=== PATIENT | female | born 1950 | race Caucasian/White ===

== ENCOUNTER 2018-01-13 07:52 | Day surgery (SDC) | payer MEDICARE, MEDICAID ==
[~2018-01-13 07:52] MED LIST: Acetaminophen TAB* 325 MG PO PRN; Buffered Lidocaine 0.9% SYRIN* 5 ML/SYR SYRINGE INTRADERM ONE
[2018-01-13] MEDS ORDERED: Midazolam* 1 MG/ML 2 ML VIAL (2 MG) ONE (09:06)
[2018-01-13] MEDS ORDERED: fentaNYL* 50 MCG/ML 2 ML VIAL (100 MCG VIAL) ONE (09:06)
[2018-01-13 10:01] VITALS: BP 134/74
[2018-01-13] MEDS ORDERED: Tropicamide 1% OPTH.SOL* BTL ONE (13:20)
[2018-01-13] MEDS ORDERED: Cyclopentolate 1% OPTH.SOL* 2 ML BTL ONE (13:20)
[2018-01-13] MEDS ORDERED: Tetracaine 0.5% OPTH.SOL 4 ML* 1 DROP BTL ONE (13:20)
[2018-01-13] MEDS ORDERED: Neomycin/Polymy/Dex OPHTH.OIN* 3.5 GM ONE (13:20)
[2018-01-13] MEDS ORDERED: Ketorolac 0.5% OPHTH (NF) 0.5 % 5 ML BTL ONE (13:20)
[2018-01-13] MEDS ORDERED: Lidocaine 1%* 5 ML VIAL ONE (13:20)
[2018-01-13] MEDS ORDERED: Phenylephrine 2.5% OPTH.SOL* 2 ML BTL ONE (13:20)
--- NOTE | 2018-01-13 21:36 | OP ---
DATE OF OPERATION: 01/13/18 - [facility] DATE OF : 52 SURGEON: Dr. Yao Trevizo. TEST DATA DEVELOPER: None. ANESTHESIA: Topical with intravenous sedation. PRE-OP DIAGNOSIS: Glaucoma and cataract, right eye. POST-OP DIAGNOSIS: Glaucoma and cataract, right eye. OPERATIVE PROCEDURE: Phacoemulsification and cataract extraction, intraocular lens implant, and CyPass placement, right eye. COMPLICATIONS: None. BLOOD LOSS: None. DESCRIPTION OF PROCEDURE: The patient was brought to the operating room and given intravenous sedation. A drop of tetracaine was placed in her right eye. The patient was prepped and draped in the usual sterile fashion for ophthalmic surgery and attention was directed to the right eye where a speculum was placed. A paracentesis was created at the 11 o'clock position and 0.1 cc of 1% preservative- free Lidocaine was injected into the anterior chamber followed by DisCoVisc. The eye was digitally stabilized while a 2.75 mm keratome was used to create a triplanar clear corneal incision at the 9 o'clock position. A continuous curvilinear capsulorrhexis was created with a cystotome and Utrata forceps. BSS on a cannula was used to hydrodissect the lens from the capsule. Phacoemulsification was performed in a rygfwk-ryq-ekmvqnw technique to create four fragments, which were removed. Residual cortical material was removed with irrigation and aspiration. DisCoVisc was used to inflate the capsular bag and an AU00T0 20.5 diopter lens was inserted into the capsular bag. Supplemental DisCoVisc was used to deepen the anterior chamber and coat the surface of the cornea. The patient's head was rotated away from the surgeon. The microscope was rotated towards the surgeon. A gonioprism was placed on the surface of the eye. A CyPass on its spray gun repairer was introduced into the anterior chamber. Under direct visualization, the CyPass was inserted into the superciliary space in the nasal aspect of the angle. The spray gun repairer and the gonioprism were removed. The microscope and head were returned to a neutral position. Irrigation and aspiration were performed to remove viscoelastic from the eye. BSS on a cannula was used to hydrate the corneal stroma and seal the wound. At the end of the case, the pupil was round. The lens was centered and stable. The CyPass was in good position. The eye pressure appeared normal and the wound was watertight. The speculum was removed. Topical Maxitrol ointment was placed on the surface of the eye. The eye was closed, patched, and shielded and the patient was sent to the recovery room in stable condition with postoperative instructions and a followup appointment given. [id number]/[facility] #: [id number] MTDD
== END 2018-01-13 10:10 | disposition home or self-care (01) ==
LOC: OREAST 07:52
PROVIDERS: ATTEND Ophthalmology
DX: H25.11 Age-related nuclear cataract, right eye (principal); H40.89 Other specified glaucoma; G47.33 Obstructive sleep apnea (adult) (pediatric); I10 Essential (primary) hypertension; J44.9 Chronic obstructive pulmonary disease, unspecified; E03.9 Hypothyroidism, unspecified; M06.9 Rheumatoid arthritis, unspecified; F31.89 Other bipolar disorder; G25.81 Restless legs syndrome
CPT/HCPCS: A9270-GY; C1783; J2250; J3010; V2632

== ENCOUNTER 2018-01-20 08:39 | Day surgery (SDC) | payer MEDICARE, MEDICAID ==
[~2018-01-20 08:39] MED LIST changes: -Acetaminophen TAB* 325 MG PO PRN
[2018-01-20] MEDS ORDERED: fentaNYL* 50 MCG/ML 2 ML VIAL (100 MCG VIAL) ONE (10:11)
[2018-01-20] MEDS ORDERED: Midazolam* 1 MG/ML 2 ML VIAL (2 MG) ONE (10:11)
[2018-01-20] MEDS ORDERED: Naloxone* 0.4 MG/ML 1 ML VIAL IV PRN (11:36)
[2018-01-20 11:37] VITALS: BP 142/72
[2018-01-20] MEDS ORDERED: Tropicamide 1% OPTH.SOL* BTL ONE (15:09)
[2018-01-20] MEDS ORDERED: Tetracaine 0.5% OPTH.SOL 4 ML* 1 DROP BTL ONE (15:09)
[2018-01-20] MEDS ORDERED: Cyclopentolate 1% OPTH.SOL* 2 ML BTL ONE (15:09)
[2018-01-20] MEDS ORDERED: Ketorolac 0.5% OPHTH (NF) 0.5 % 5 ML BTL ONE (15:09)
[2018-01-20] MEDS ORDERED: Lidocaine 1%* 5 ML VIAL ONE (15:09)
[2018-01-20] MEDS ORDERED: Phenylephrine 2.5% OPTH.SOL* 2 ML BTL ONE (15:09)
[2018-01-20] MEDS ORDERED: Neomycin/Polymy/Dex OPHTH.OIN* 3.5 GM ONE (15:09)
--- NOTE | 2018-01-20 18:48 | OP ---
OPERATIVE REPORT: DATE OF OPERATION: 01/20/18 - [facility] DATE OF : 52 SURGEON: Yao Trevizo MD SCHOOL YEAR NANNY: None. ANESTHESIA: Topical with intravenous sedation. PRE-OP DIAGNOSIS: Cataract and glaucoma, left eye. POST-OP DIAGNOSIS: Cataract and glaucoma, left eye. OPERATIVE PROCEDURE: Phacoemulsification, cataract extraction with posterior chamber intraocular lens implant left eye and CyPass placed on the left eye. COMPLICATIONS: None. ESTIMATED BLOOD LOSS: None. DESCRIPTION OF PROCEDURE: The patient was brought to the operating room and received a small amount of intravenous sedation. A drop of Tetracaine was placed in her left eye. The patient was prepped and draped in the usual sterile fashion for ophthalmic surgery and attention was directed to the left eye where a speculum was placed. A paracentesis was created at the 5 o'clock position and 0.1 cc of 1% preservative free lidocaine was injected into the anterior chamber followed by DisCoVisc. The eye was digitally stabilized while a 2.75 mm keratome was used to create a triplanar clear corneal incision at the 3 o'clock position. A continuous curvilinear capsulorrhexis was created with a cystotome and Utrata forceps. BSS on a cannula was used to hydrodissect the lens from the capsule. Phacoemulsification was performed in a divide-and- conquer technique to create 4 fragments, which were removed. Residual cortical material was removed with irrigation and aspiration. DisCoVisc was used to inflate the capsular bag. An AU00T0 20.5 diopter lens was inserted into the capsular bag. Supplemental DisCoVisc was added to the anterior chamber to deepen it and to coat the surface of the cornea. The patient's head was rotated away from the doctor and the microscope was rotated towards the doctor. The angle was visualized by placing a corneal prism on the surface of the eye. A CyPass on its law examiner was introduced into the anterior chamber. Under direct visualization, the CyPass was placed into the nasal aspect of the superciliary space. The CyPass inserted on the corneal prism removed. The patient's head and the microscope were rotated to a neutral position. Viscoelastic was removed with irrigation and aspiration. BSS in a cannula was used to hydrate the corneal stroma and seal the wound. At the end of the case, the pupils were round. The lens was centered and stable. The eye pressure appeared normal. The CyPass was in good position. The wound was watertight. The speculum was removed and topical Maxitrol ointment was placed on the surface of the eye. The eye was closed, patched, and shielded, and the patient was sent to recovery room in stable condition with postop instructions and follow-up appointment given. [id number]/[facility] #: [id number] ELOISA
== END 2018-01-20 11:43 | disposition home or self-care (01) ==
LOC: OREAST 08:39
PROVIDERS: ATTEND Ophthalmology
DX: H25.12 Age-related nuclear cataract, left eye (principal); H40.89 Other specified glaucoma; F41.8 Other specified anxiety disorders; Z87.891 Personal history of nicotine dependence; E03.9 Hypothyroidism, unspecified; M06.9 Rheumatoid arthritis, unspecified; R06.02 Shortness of breath; G47.33 Obstructive sleep apnea (adult) (pediatric); J44.9 Chronic obstructive pulmonary disease, unspecified; F31.9 Bipolar disorder, unspecified
CPT/HCPCS: A9270-GY; C1783; J2250; J3010; V2632

== ENCOUNTER 2020-04-28 23:56 | Inpatient (IN) ==
[2020-04-29] MEDS ORDERED: NS 0.9% 1000 ml BAG 1,000 ML IV.FLUID IV ONE (00:30)
[2020-04-29 01:12] LABS: Activated Partial Thrombo Time 33.8 seconds (26.0-38.0); Hematocrit 41 % (35-47); Hemoglobin 13.2 g/dL (12.0-16.0); INR 1.03 (0.82-1.09); Mean Corpuscular HGB Conc 32 g/dL (31-36); Mean Corpuscular Hemoglobin 29 pg (27-31); Mean Corpuscular Volume 89 fL (80-97); Mean Platelet Volume 8.2 fL (7.4-10.4); Platelet Count 270 10^3/uL (150-450); Red Blood Count 4.56 10^6 /uL (3.70-4.87); Red Cell Distribution Width 14 % (10-15); White Blood Count 20.3 10^3/uL (3.5-10.8)
[2020-04-29 01:22] LABS: Albumin 3.8 g/dL (3.2-5.2); C Reactive Protein 202.16 mg/L (<8.01); Calcium 9.4 mg/dL (8.6-10.3); EGFR African American 66.7 (>60); EGFR Non-African American 55.1 (>60); Globulin 3.8 g/dL (2-4); Potassium 3.6 mmol/L (3.5-5.0); Total Bilirubin 0.4 mg/dL (0.2-1.0); Total Protein 7.6 g/dL (6.4-8.9)
[2020-04-29 01:23] LABS: Troponin I 0.01 ng/mL (<0.03)
[2020-04-29] MEDS ORDERED: Iodixanol (CONTRAST) 320 MG/ML 100 ML SDV IV ONE (01:38)
[2020-04-29 01:40] LABS: ABS Basophils 0.1 10^3/ul (0-0.2); ABS Eosinophils 0.1 10^3/ul (0-0.6); ABS Lymphocytes 0.7 10^3/ul (1.0-4.8); ABS Monocytes 1.6 10^3/ul (0-0.8); ABS Neutrophils 17.7 10^3/ul (1.5-7.7); Eosinophil % 0.7 %; Lymphocyte % 3.5 %
[2020-04-29] MEDS: Nicotine GUM 4MG FRUIT FLAVOR PO PRN ×2 (02:46→16:23)
[2020-04-29 03:09] LABS: Urine Appearance Clear; Urine Bilirubin Negative (Negative); Urine Blood 1+ (Negative); Urine Color Straw; Urine Glucose Negative (Negative); Urine Ketones Trace (Negative); Urine Nitrite Negative (Negative); Urine Protein Negative (Negative); Urine Specific Gravity 1.032 (1.010-1.030); Urine Urobilinogen Negative (Negative)
[2020-04-29 03:12] LABS: Urine Bacteria Absent (Absent); Urine Red Blood Cell 1+(3-5/hpf) (Absent); Urine Squamous Epithelial Cell Present (Absent); Urine White Blood Cell Trace(0-5/hpf) (Absent)
[2020-04-29 03:22] LABS: Influenza A Molecular Negative (Negative); Influenza B Molecular Negative (Negative)
[2020-04-29] MEDS ORDERED: Piperacillin/Tazobac ADVAN 3.375 GM in NS 0.9% 100 ml BAG 100 ML IV ONE (03:24)
[2020-04-29] MEDS ORDERED: Lactated Ringers 1000 ml BAG 1,000 ML IV SCH (05:00)
[2020-04-29] MEDS: metroNIDAZOLE IV 500 MG/100ML 500 MG/100 ML BAG IVPB SCH ×3 (06:41→21:34)
[2020-04-29] MEDS: Enoxaparin 40 MG/0.4 ML SYR SUBCUT SCH (07:39)
[2020-04-29] MEDS: cefTRIAXone 2 GM ADDV.VIAL 2 GM in NS 0.9% 100 ml BAG 100 ML IV SCH (09:47)
[2020-04-29] MEDS: Cholecalciferol (VIT D3) 1,000 unit TAB PO SCH (21:34)
[2020-04-29] MEDS: Aspirin EC 81 mg TAB.EC (enteric coated) PO SCH (21:34)
[2020-04-29] MEDS: Latanoprost 0.005% 2.5 ml BTL BOTH EYES SCH (21:34)
[2020-04-30] MEDS ORDERED: NS 0.9% 1000 ml BAG 1,000 ML IV ONE (03:38)
[2020-04-30] MEDS: Levalbuterol 0.63MG/3ML NEB UNIT OF USE INH PRN (04:18)
[2020-04-30 05:19] LABS: Hematocrit 37 % (35-47); Hemoglobin 11.8 g/dL (12.0-16.0); Mean Corpuscular HGB Conc 32 g/dL (31-36); Mean Corpuscular Hemoglobin 29 pg (27-31); Mean Corpuscular Volume 90 fL (80-97); Mean Platelet Volume 8.2 fL (7.4-10.4); Platelet Count 245 10^3/uL (150-450); Red Blood Count 4.07 10^6 /uL (3.70-4.87); Red Cell Distribution Width 14 % (10-15); White Blood Count 23.9 10^3/uL (3.5-10.8)
[2020-04-30 05:22] LABS: ABS Basophils 0.1 10^3/ul (0-0.2); ABS Eosinophils 0.4 10^3/ul (0-0.6); ABS Lymphocytes 0.7 10^3/ul (1.0-4.8); ABS Monocytes 1.9 10^3/ul (0-0.8); ABS Neutrophils 20.8 10^3/ul (1.5-7.7); Eosinophil % 1.6 %; Lymphocyte % 2.9 %
[2020-04-30 05:46] LABS: BUN/Creatinine Ratio 9.2 (8-20); Calcium 8.5 mg/dL (8.6-10.3); EGFR African American 91.6 (>60); EGFR Non-African American 75.7 (>60)
[2020-04-30] MEDS: Enoxaparin 40 MG/0.4 ML SYR SUBCUT SCH (05:49)
[2020-04-30] MEDS: metroNIDAZOLE IV 500 MG/100ML 500 MG/100 ML BAG IVPB SCH ×3 (05:49→21:28)
[2020-04-30] MEDS: cefTRIAXone 2 GM ADDV.VIAL 2 GM in NS 0.9% 100 ml BAG 100 ML IV SCH (08:42)
[2020-04-30] MEDS: Nicotine GUM 4MG FRUIT FLAVOR PO PRN ×4 (08:57→20:23)
[2020-04-30] MEDS: SPIRIVA Respimat (tiotropium) 2.5 mcg/inh Inhaler INH SCH (17:40)
[2020-04-30] MEDS: Aspirin EC 81 mg TAB.EC (enteric coated) PO SCH (20:23)
[2020-04-30] MEDS: Cholecalciferol (VIT D3) 1,000 unit TAB PO SCH (20:23)
[2020-04-30] MEDS: Latanoprost 0.005% 2.5 ml BTL BOTH EYES SCH (20:37)
[2020-05-01] MEDS: Enoxaparin 40 MG/0.4 ML SYR SUBCUT SCH ×2 (05:38→05:44)
[2020-05-01] MEDS: metroNIDAZOLE IV 500 MG/100ML 500 MG/100 ML BAG IVPB SCH ×3 (05:39→22:32)
[2020-05-01 09:06] LABS: Hematocrit 37 % (35-47); Hemoglobin 11.6 g/dL (12.0-16.0); Mean Corpuscular HGB Conc 31 g/dL (31-36); Mean Corpuscular Hemoglobin 29 pg (27-31); Mean Corpuscular Volume 91 fL (80-97); Platelet Count 273 10^3/uL (150-450); Red Blood Count 4.08 10^6 /uL (3.70-4.87); Red Cell Distribution Width 14 % (10-15)
[2020-05-01] MEDS: SPIRIVA Respimat (tiotropium) 2.5 mcg/inh Inhaler INH SCH (09:12)
[2020-05-01 09:27] LABS: BUN/Creatinine Ratio 8.6 (8-20); Calcium 8.7 mg/dL (8.6-10.3); EGFR African American 85.1 (>60); EGFR Non-African American 70.3 (>60)
[2020-05-01] MEDS: cefTRIAXone 2 GM ADDV.VIAL 2 GM in NS 0.9% 100 ml BAG 100 ML IV SCH (09:53)
[2020-05-01 10:16] LABS: ABS Eosinophils 0.2 10^3/ul (0-0.6); ABS Lymphocytes 0.3 10^3/ul (1.0-4.8); ABS Monocytes 1.3 10^3/ul (0-0.8); ABS Neutrophils 16.1 10^3/ul (1.5-7.7); Eosinophil % 1.2 %; Lymphocyte % 1.9 %
[2020-05-01] MEDS: Azithromycin 500 mg/250 ml NS 500 MG/250 ML BAG IVPB SCH (10:59)
[2020-05-01] MEDS ORDERED: Iohexol 350 (CONTRAST) 500 ML MDV IV ONE (18:09)
[2020-05-01] MEDS: Latanoprost 0.005% 2.5 ml BTL BOTH EYES SCH (19:35)
[2020-05-01] MEDS: Aspirin EC 81 mg TAB.EC (enteric coated) PO SCH (19:35)
[2020-05-01] MEDS: Cholecalciferol (VIT D3) 1,000 unit TAB PO SCH (19:35)
[2020-05-01] MEDS: Levalbuterol 0.63MG/3ML NEB UNIT OF USE INH PRN (21:45)
[2020-05-02] MEDS ORDERED: Succinylcholine 200 mg VIAL 20 mg/ml 10 ml VIAL (200 mg) ONE (00:43)
[2020-05-02] MEDS ORDERED: Etomidate 40 mg/20 ml (2 MG/ML) 20 ml VIAL (40 mg) ONE (01:03)
[2020-05-02] MEDS ORDERED: Propofol 10 mg/ml 100 ML BTL 100 ML ONE (01:16)
[2020-05-02] MEDS: Midazolam 50 MG VIAL IV DRIP 50 ML IV SCH ×3 (01:58→17:06)
[2020-05-02] MEDS ORDERED: Propofol 10 mg/ml 100 ML BTL 100 ML IV SCH (02:00)
[2020-05-02] MEDS ORDERED: Midazolam IV for DRIP 100 MG in NS 0.9% IV SCH (02:00)
[2020-05-02] MEDS: fentaNYL INFUSION 50 MCG/ML 2,500 MCG/50 ML BAG IV SCH (02:03)
[2020-05-02] MEDS: Pantoprazole VIAL 40 MG VIAL IV SCH ×2 (05:05→10:19)
[2020-05-02] MEDS: Chlorhexidine MOUTHWASH 0.12% 15 ML UDC TOPICAL SCH ×6 (05:05→21:50)
[2020-05-02] MEDS: Enoxaparin 40 MG/0.4 ML SYR SUBCUT SCH (05:06)
[2020-05-02 05:35] LABS: Hematocrit 35 % (35-47); Hemoglobin 11.2 g/dL (12.0-16.0); Mean Corpuscular HGB Conc 32 g/dL (31-36); Mean Corpuscular Hemoglobin 29 pg (27-31); Mean Corpuscular Volume 91 fL (80-97); Mean Platelet Volume 8.8 fL (7.4-10.4); Platelet Count 301 10^3/uL (150-450); Red Blood Count 3.86 10^6 /uL (3.70-4.87); Red Cell Distribution Width 14 % (10-15); White Blood Count 14.5 10^3/uL (3.5-10.8)
[2020-05-02] MEDS: metroNIDAZOLE IV 500 MG/100ML 500 MG/100 ML BAG IVPB SCH ×3 (05:47→22:20)
[2020-05-02 06:42] LABS: ABS Eosinophils 0.1 10^3/ul (0-0.6); ABS Lymphocytes 0.5 10^3/ul (1.0-4.8); ABS Monocytes 1.4 10^3/ul (0-0.8); ABS Neutrophils 12.4 10^3/ul (1.5-7.7); Lymphocyte % 3.5 %
[2020-05-02 08:13] LABS: Albumin 2.9 g/dL (3.2-5.2); Albumin/Globulin Ratio 0.9 (1-3); BUN/Creatinine Ratio 10.6 (8-20); C Reactive Protein 308.96 mg/L (<8.01); Calcium 8.9 mg/dL (8.6-10.3); EGFR African American 80.5 (>60); EGFR Non-African American 66.5 (>60); Globulin 3.2 g/dL (2-4); Magnesium 1.7 mg/dL (1.9-2.7); Potassium 4.1 mmol/L (3.5-5.0); Total Bilirubin 0.4 mg/dL (0.2-1.0); Total Protein 6.1 g/dL (6.4-8.9)
[2020-05-02] MEDS: Azithromycin 500 mg/250 ml NS 500 MG/250 ML BAG IVPB SCH (08:21)
[2020-05-02 09:08] LABS: Troponin I 0.05 ng/mL (<0.03)
[2020-05-02] MEDS ORDERED: Magnesium Sulfate 2 gm BAG 2 GM/50 ML BAG IVPB ONE (09:12)
[2020-05-02] MEDS ORDERED: Perflutren Lipid Microsphere 3 ML VIAL ONE (09:37)
[2020-05-02] MEDS: cefTRIAXone 2 GM ADDV.VIAL 2 GM in NS 0.9% 100 ml BAG 100 ML IV SCH (09:51)
[2020-05-02 14:09] LABS: Urine Appearance Cloudy; Urine Bilirubin Negative (Negative); Urine Blood Negative (Negative); Urine Color Amber; Urine Glucose Negative (Negative); Urine Ketones Trace (Negative); Urine Nitrite Negative (Negative); Urine Protein 2+(100 mg/dL) (Negative); Urine Urobilinogen Negative (Negative)
[2020-05-02 14:17] LABS: Urine Bacteria Absent (Absent); Urine Red Blood Cell Absent (Absent); Urine Squamous Epithelial Cell Present (Absent); Urine White Blood Cell 1+(6-10/hpf) (Absent)
[2020-05-02] MEDS: Cholecalciferol (VIT D3) 1,000 unit TAB PO SCH (21:51)
[2020-05-02] MEDS: Lactated Ringers 1000 ml BAG 1,000 ML IV SCH (21:57)
[2020-05-02] MEDS: Latanoprost 0.005% 2.5 ml BTL BOTH EYES SCH (23:33)
[2020-05-02] MEDS: Aspirin EC 81 mg TAB.EC (enteric coated) PO SCH (23:42)
[2020-05-03] MEDS ORDERED: NS 0.9% IV ONE (00:45)
[2020-05-03] MEDS ORDERED: NS 0.9% 1000 ml BAG 1,000 ML IV SCH (00:45)
[2020-05-03 01:25] LABS: Hematocrit 32 % (35-47); Hemoglobin 10.1 g/dL (12.0-16.0); Mean Corpuscular HGB Conc 32 g/dL (31-36); Mean Corpuscular Hemoglobin 29 pg (27-31); Mean Corpuscular Volume 89 fL (80-97); Platelet Count 285 10^3/uL (150-450); Red Blood Count 3.53 10^6 /uL (3.70-4.87); Red Cell Distribution Width 14 % (10-15); White Blood Count 18.4 10^3/uL (3.5-10.8)
[2020-05-03 01:42] LABS: Albumin 2.5 g/dL (3.2-5.2); Albumin/Globulin Ratio 0.8 (1-3); BUN/Creatinine Ratio 14.1 (8-20); Calcium 8.4 mg/dL (8.6-10.3); EGFR African American 73.5 (>60); EGFR Non-African American 60.7 (>60); Potassium 3.7 mmol/L (3.5-5.0); Total Bilirubin 0.4 mg/dL (0.2-1.0); Total Protein 5.5 g/dL (6.4-8.9)
[2020-05-03 02:39] LABS: ABS Eosinophils 0.5 10^3/ul (0-0.6); ABS Lymphocytes 0.7 10^3/ul (1.0-4.8); ABS Monocytes 1.9 10^3/ul (0-0.8); ABS Neutrophils 15.3 10^3/ul (1.5-7.7); Eosinophil % 2.9 %; Lymphocyte % 3.7 %
[2020-05-03] MEDS: Chlorhexidine MOUTHWASH 0.12% 15 ML UDC TOPICAL SCH ×6 (03:00→21:05)
[2020-05-03] MEDS: fentaNYL INFUSION 50 MCG/ML 2,500 MCG/50 ML BAG IV SCH ×2 (03:15→21:33)
[2020-05-03 03:26] LABS: Urine Appearance Clear; Urine Bilirubin Negative (Negative); Urine Blood 2+ (Negative); Urine Color Amber; Urine Glucose Negative (Negative); Urine Ketones Negative (Negative); Urine Nitrite Negative (Negative); Urine Protein 2+(100 mg/dL) (Negative); Urine Specific Gravity 1.027 (1.010-1.030); Urine Urobilinogen Negative (Negative)
[2020-05-03 03:48] LABS: Urine Bacteria Absent (Absent); Urine Red Blood Cell 3+(>10/hpf) (Absent); Urine Squamous Epithelial Cell Present (Absent); Urine White Blood Cell 1+(6-10/hpf) (Absent)
[2020-05-03] MEDS: Midazolam 50 MG VIAL IV DRIP 50 ML IV SCH ×3 (05:36→23:46)
[2020-05-03 05:43] LABS: Hematocrit 33 % (35-47); Hemoglobin 10.4 g/dL (12.0-16.0); Mean Corpuscular HGB Conc 32 g/dL (31-36); Mean Corpuscular Hemoglobin 29 pg (27-31); Mean Corpuscular Volume 90 fL (80-97); Platelet Count 301 10^3/uL (150-450); Red Blood Count 3.62 10^6 /uL (3.70-4.87); Red Cell Distribution Width 14 % (10-15); White Blood Count 20.2 10^3/uL (3.5-10.8)
[2020-05-03 05:46] LABS: ABS Basophils 0.1 10^3/ul (0-0.2); ABS Eosinophils 0.7 10^3/ul (0-0.6); ABS Neutrophils 16.4 10^3/ul (1.5-7.7); Eosinophil % 3.7 %; Lymphocyte % 5.2 %
[2020-05-03 06:00] LABS: BUN/Creatinine Ratio 15.5 (8-20); Calcium 7.9 mg/dL (8.6-10.3); EGFR African American 81.6 (>60); EGFR Non-African American 67.4 (>60)
[2020-05-03] MEDS: Lactated Ringers 1000 ml BAG 1,000 ML IV SCH ×3 (06:08→21:41)
[2020-05-03] MEDS: Enoxaparin 40 MG/0.4 ML SYR SUBCUT SCH (06:24)
[2020-05-03] MEDS: metroNIDAZOLE IV 500 MG/100ML 500 MG/100 ML BAG IVPB SCH ×3 (06:24→21:05)
[2020-05-03] MEDS: Azithromycin 500 mg/250 ml NS 500 MG/250 ML BAG IVPB SCH (09:26)
[2020-05-03] MEDS: cefTRIAXone 2 GM ADDV.VIAL 2 GM in NS 0.9% 100 ml BAG 100 ML IV SCH (09:26)
[2020-05-03 09:44] LABS: Myoglobin 29.8 ng/mL (14.3-65.8)
[2020-05-03] MEDS: Pantoprazole VIAL 40 MG VIAL IV SCH (09:54)
[2020-05-03] MEDS: Phenylephrine IV 50 MG in NS 0.9% 250 ml 245 ML IV SCH (11:25)
[2020-05-03] MEDS: Levalbuterol 0.63MG/3ML NEB UNIT OF USE INH PRN (15:13)
[2020-05-03] MEDS: Levalbuterol 1.25MG/0.5ML NEB.SOL INH PRN (15:16)
[2020-05-03] MEDS: Latanoprost 0.005% 2.5 ml BTL BOTH EYES SCH (20:16)
[2020-05-03] MEDS: Cholecalciferol (VIT D3) 1,000 unit TAB PO SCH (20:24)
[2020-05-04] MEDS: Chlorhexidine MOUTHWASH 0.12% 15 ML UDC TOPICAL SCH ×6 (02:24→22:29)
[2020-05-04] MEDS: Lactated Ringers 1000 ml BAG 1,000 ML IV SCH ×3 (03:56→20:18)
[2020-05-04 04:01] LABS: Hematocrit 32 % (35-47); Hemoglobin 10.3 g/dL (12.0-16.0); Mean Corpuscular HGB Conc 32 g/dL (31-36); Mean Corpuscular Hemoglobin 29 pg (27-31); Mean Corpuscular Volume 90 fL (80-97); Mean Platelet Volume 8.2 fL (7.4-10.4); Platelet Count 350 10^3/uL (150-450); Red Cell Distribution Width 15 % (10-15); White Blood Count 19.7 10^3/uL (3.5-10.8)
[2020-05-04 04:04] LABS: ABS Basophils 0.1 10^3/ul (0-0.2); ABS Eosinophils 0.8 10^3/ul (0-0.6); ABS Lymphocytes 0.7 10^3/ul (1.0-4.8); ABS Monocytes 1.8 10^3/ul (0-0.8); ABS Neutrophils 16.4 10^3/ul (1.5-7.7); Eosinophil % 3.8 %; Lymphocyte % 3.5 %
[2020-05-04 04:15] LABS: BUN/Creatinine Ratio 15.7 (8-20); Calcium 8.1 mg/dL (8.6-10.3); EGFR African American 100.7 (>60); EGFR Non-African American 83.2 (>60); Magnesium 1.9 mg/dL (1.9-2.7); Potassium 3.8 mmol/L (3.5-5.0)
[2020-05-04] MEDS: Midazolam 50 MG VIAL IV DRIP 50 ML IV SCH ×3 (04:56→18:40)
[2020-05-04] MEDS: Enoxaparin 40 MG/0.4 ML SYR SUBCUT SCH (05:07)
[2020-05-04] MEDS: metroNIDAZOLE IV 500 MG/100ML 500 MG/100 ML BAG IVPB SCH ×3 (05:08→22:29)
[2020-05-04] MEDS: cefTRIAXone 2 GM ADDV.VIAL 2 GM in NS 0.9% 100 ml BAG 100 ML IV SCH (08:33)
[2020-05-04] MEDS: Pantoprazole VIAL 40 MG VIAL IV SCH (08:33)
[2020-05-04] MEDS: Azithromycin 500 mg/250 ml NS 500 MG/250 ML BAG IVPB SCH (08:34)
[2020-05-04] MEDS: Phenylephrine IV 50 MG in NS 0.9% 250 ml 245 ML IV SCH ×2 (09:11→21:33)
[2020-05-04] MEDS ORDERED: Vancomycin 1,250 MG in NS 0.9% 250 ml 250 ML IVPB SCH (11:00)
[2020-05-04] MEDS ORDERED: VANCOMYCIN 1500 MG X 1 DOSE, THEN PER PHARMACY PROTOCOL IVPB ONE (11:30)
[2020-05-04] MEDS: Cefepime 1 GM in Dextrose 1 GM/50 ML BAG IV SCH ×2 (13:08→23:10)
[2020-05-04] MEDS ORDERED: Vancomycin per Pharmacy 1 EA NOTE FOLLOW UP PRN (13:28)
[2020-05-04] MEDS: Levalbuterol 1.25MG/0.5ML NEB.SOL INH PRN (14:12)
[2020-05-04] MEDS: Vancomycin 1000 MG in NS 0.9% 250 ML IVPB SCH (20:18)
[2020-05-04] MEDS: Cholecalciferol (VIT D3) 1,000 unit TAB PO SCH (20:19)
[2020-05-04] MEDS: Latanoprost 0.005% 2.5 ml BTL BOTH EYES SCH (20:19)
[2020-05-04] MEDS: fentaNYL INFUSION 50 MCG/ML 2,500 MCG/50 ML BAG IV SCH (23:10)
[2020-05-05] MEDS: Midazolam 50 MG VIAL IV DRIP 50 ML IV SCH ×3 (01:35→19:03)
[2020-05-05] MEDS: Chlorhexidine MOUTHWASH 0.12% 15 ML UDC TOPICAL SCH ×6 (01:39→21:33)
[2020-05-05] MEDS: Enoxaparin 40 MG/0.4 ML SYR SUBCUT SCH (05:18)
[2020-05-05] MEDS: metroNIDAZOLE IV 500 MG/100ML 500 MG/100 ML BAG IVPB SCH ×3 (05:18→21:33)
[2020-05-05] MEDS: Vancomycin 1000 MG in NS 0.9% 250 ML IVPB SCH ×3 (05:18→21:33)
[2020-05-05] MEDS: Lactated Ringers 1000 ml BAG 1,000 ML IV SCH (05:20)
[2020-05-05 05:32] LABS: Hematocrit 33 % (35-47); Hemoglobin 10.6 g/dL (12.0-16.0); Mean Corpuscular HGB Conc 32 g/dL (31-36); Mean Corpuscular Hemoglobin 28 pg (27-31); Mean Corpuscular Volume 89 fL (80-97); Mean Platelet Volume 8.2 fL (7.4-10.4); Platelet Count 387 10^3/uL (150-450); Red Blood Count 3.73 10^6 /uL (3.70-4.87); Red Cell Distribution Width 15 % (10-15); White Blood Count 18.2 10^3/uL (3.5-10.8)
[2020-05-05 05:52] LABS: BUN/Creatinine Ratio 14.7 (8-20); Calcium 8.3 mg/dL (8.6-10.3); EGFR African American 104.1 (>60); Phosphorus 4.1 mg/dL (2.5-5.0); Potassium 3.8 mmol/L (3.5-5.0)
[2020-05-05 06:35] LABS: ABS Eosinophils 0.9 10^3/ul (0-0.6); ABS Lymphocytes 0.6 10^3/ul (1.0-4.8); ABS Monocytes 1.7 10^3/ul (0-0.8); Eosinophil % 5.1 %; Lymphocyte % 3.2 %
[2020-05-05] MEDS: Pantoprazole VIAL 40 MG VIAL IV SCH (07:56)
[2020-05-05] MEDS ORDERED: Furosemide 20 mg/2 ml IV VIAL IV SLOW PU ONE (08:50)
[2020-05-05] MEDS ORDERED: fentaNYL 100 mcg/2 ml 50 MCG/ML VIAL ONE (09:40)
[2020-05-05] MEDS: Albuterol/Ipratropium NEB.SOL (2.5/0.5 MG) 3 ML NEB.SOLN INH SCH ×3 (10:40→23:59)
[2020-05-05] MEDS: Cefepime 1 GM in Dextrose 1 GM/50 ML BAG IV SCH ×2 (11:04→23:29)
[2020-05-05] MEDS: Phenylephrine IV 50 MG in NS 0.9% 250 ml 245 ML IV SCH ×2 (12:26→23:09)
[2020-05-05] MEDS ORDERED: Vancomycin Trough Check NOTE FOLLOW UP ONE (13:30)
[2020-05-05 14:22] LABS: Body Fluid Source Pleural Fluid
[2020-05-05 15:44] LABS: Body Fluid Mono 21 %; Body Fluid Other Cells 2
[2020-05-05] MEDS: fentaNYL INFUSION 50 MCG/ML 2,500 MCG/50 ML BAG IV SCH (18:56)
[2020-05-05] MEDS: Latanoprost 0.005% 2.5 ml BTL BOTH EYES SCH (19:55)
[2020-05-05] MEDS: Cholecalciferol (VIT D3) 1,000 unit TAB PO SCH (19:55)
[2020-05-06] MEDS: Chlorhexidine MOUTHWASH 0.12% 15 ML UDC TOPICAL SCH ×6 (01:50→20:49)
[2020-05-06] MEDS: metroNIDAZOLE IV 500 MG/100ML 500 MG/100 ML BAG IVPB SCH ×3 (04:17→21:50)
[2020-05-06] MEDS: Vancomycin 1000 MG in NS 0.9% 250 ML IVPB SCH (04:19)
[2020-05-06 04:24] LABS: Hematocrit 34 % (35-47); Hemoglobin 10.6 g/dL (12.0-16.0); Mean Corpuscular HGB Conc 32 g/dL (31-36); Mean Corpuscular Hemoglobin 29 pg (27-31); Mean Corpuscular Volume 90 fL (80-97); Mean Platelet Volume 7.8 fL (7.4-10.4); Platelet Count 432 10^3/uL (150-450); Red Blood Count 3.73 10^6 /uL (3.70-4.87); Red Cell Distribution Width 15 % (10-15); White Blood Count 17.8 10^3/uL (3.5-10.8)
[2020-05-06] MEDS: Albuterol/Ipratropium NEB.SOL (2.5/0.5 MG) 3 ML NEB.SOLN INH SCH ×3 (04:33→17:14)
[2020-05-06 04:40] LABS: BUN/Creatinine Ratio 13.5 (8-20); Calcium 8.3 mg/dL (8.6-10.3); EGFR African American 40.2 (>60); EGFR Non-African American 33.3 (>60); Magnesium 2.1 mg/dL (1.9-2.7); Phosphorus 5.7 mg/dL (2.5-5.0); Potassium 4.2 mmol/L (3.5-5.0)
[2020-05-06] MEDS: Midazolam 50 MG VIAL IV DRIP 50 ML IV SCH ×3 (04:49→23:20)
[2020-05-06] MEDS: Enoxaparin 40 MG/0.4 ML SYR SUBCUT SCH (05:59)
[2020-05-06] MEDS: Phenylephrine IV 50 MG in NS 0.9% 250 ml 245 ML IV SCH ×2 (07:50→16:59)
[2020-05-06] MEDS: Pantoprazole VIAL 40 MG VIAL IV SCH (08:43)
[2020-05-06 11:47] LABS: Albumin, BF 1.4 g/dL; Lactate Dehydrogenase, BF 127 U/L
[2020-05-06] MEDS: Cefepime 1 GM in Dextrose 1 GM/50 ML BAG IV SCH ×2 (12:38→22:37)
[2020-05-06] MEDS: fentaNYL INFUSION 50 MCG/ML 2,500 MCG/50 ML BAG IV SCH (16:59)
[2020-05-06] MEDS: Cholecalciferol (VIT D3) 1,000 unit TAB PO SCH (19:17)
[2020-05-06] MEDS: Latanoprost 0.005% 2.5 ml BTL BOTH EYES SCH (19:18)
[2020-05-07] MEDS: Albuterol/Ipratropium NEB.SOL (2.5/0.5 MG) 3 ML NEB.SOLN INH SCH ×4 (00:08→19:10)
[2020-05-07] MEDS: Phenylephrine IV 50 MG in NS 0.9% 250 ml 245 ML IV SCH (02:17)
[2020-05-07] MEDS: Chlorhexidine MOUTHWASH 0.12% 15 ML UDC TOPICAL SCH ×6 (02:18→21:12)
[2020-05-07 04:28] LABS: Hematocrit 33 % (35-47); Hemoglobin 10.4 g/dL (12.0-16.0); Mean Corpuscular HGB Conc 31 g/dL (31-36); Mean Corpuscular Hemoglobin 28 pg (27-31); Mean Corpuscular Volume 91 fL (80-97); Mean Platelet Volume 7.9 fL (7.4-10.4); Platelet Count 419 10^3/uL (150-450); Red Blood Count 3.66 10^6 /uL (3.70-4.87); Red Cell Distribution Width 15 % (10-15); White Blood Count 19.2 10^3/uL (3.5-10.8)
[2020-05-07 04:42] LABS: BUN/Creatinine Ratio 11.7 (8-20); Calcium 8.3 mg/dL (8.6-10.3); EGFR African American 22.4 (>60); EGFR Non-African American 18.6 (>60); Phosphorus 5.7 mg/dL (2.5-5.0); Potassium 4.4 mmol/L (3.5-5.0)
[2020-05-07] MEDS: metroNIDAZOLE IV 500 MG/100ML 500 MG/100 ML BAG IVPB SCH ×3 (05:02→21:51)
[2020-05-07] MEDS: Enoxaparin 40 MG/0.4 ML SYR SUBCUT SCH (05:28)
[2020-05-07] MEDS ORDERED: Phenylephrine IV 50 MG in NS 0.9% 250 ml 245 ML IV SCH (08:08)
[2020-05-07] MEDS: Pantoprazole VIAL 40 MG VIAL IV SCH (08:33)
[2020-05-07] MEDS: Midazolam 50 MG VIAL IV DRIP 50 ML IV SCH ×2 (09:34→19:03)
[2020-05-07] MEDS ORDERED: Lactated Ringers 1000 ml BAG 1,000 ML IV ONE (09:41)
[2020-05-07 09:53] LABS: Urine Potassium Concentration 33.3 mmol/L
[2020-05-07] MEDS: Cefepime 1 GM in Dextrose 1 GM/50 ML BAG IV SCH (12:04)
[2020-05-07] MEDS: fentaNYL INFUSION 50 MCG/ML 2,500 MCG/50 ML BAG IV SCH (13:08)
[2020-05-07] MEDS: Cholecalciferol (VIT D3) 1,000 unit TAB PO SCH (21:12)
[2020-05-07] MEDS: Heparin 5000 UNITS/ML 1 mL VIAL SUBCUT SCH (21:12)
[2020-05-07] MEDS: Latanoprost 0.005% 2.5 ml BTL BOTH EYES SCH (21:13)
[2020-05-07] MEDS ORDERED: Alteplase (CATHFLO) 2 MG VIAL IV ONE ×2 (21:57→22:10)
[2020-05-08] MEDS: metroNIDAZOLE IV 500 MG/100ML 500 MG/100 ML BAG IVPB SCH ×4 (00:14→22:34)
[2020-05-08] MEDS: Cefepime 1 GM in Dextrose 1 GM/50 ML BAG IV SCH ×3 (01:46→23:45)
[2020-05-08] MEDS: Albuterol/Ipratropium NEB.SOL (2.5/0.5 MG) 3 ML NEB.SOLN INH SCH ×4 (01:50→19:34)
[2020-05-08] MEDS ORDERED: Digoxin IV 0.5 MG/2 ML AMP (0.25 MG/ML) IV SLOW PU ONE (02:42)
[2020-05-08] MEDS ORDERED: Metoprolol Tartrate 5 mg VIAL 5 ml VIAL (1 mg/ml) IV ONE (03:35)
[2020-05-08] MEDS: Chlorhexidine MOUTHWASH 0.12% 15 ML UDC TOPICAL SCH ×7 (04:00→23:45)
[2020-05-08 04:45] LABS: Hematocrit 31 % (35-47); Hemoglobin 9.9 g/dL (12.0-16.0); Mean Corpuscular HGB Conc 32 g/dL (31-36); Mean Corpuscular Hemoglobin 28 pg (27-31); Mean Corpuscular Volume 88 fL (80-97); Mean Platelet Volume 7.7 fL (7.4-10.4); Platelet Count 408 10^3/uL (150-450); Red Blood Count 3.55 10^6 /uL (3.70-4.87); Red Cell Distribution Width 15 % (10-15); White Blood Count 17.4 10^3/uL (3.5-10.8)
[2020-05-08 05:15] LABS: BUN/Creatinine Ratio 12.6 (8-20); EGFR African American 18.1 (>60); Magnesium 2.2 mg/dL (1.9-2.7); Phosphorus 4.8 mg/dL (2.5-5.0); Potassium 4.2 mmol/L (3.5-5.0)
[2020-05-08] MEDS ORDERED: Vancomycin Trough Check NOTE FOLLOW UP ONE (06:00)
[2020-05-08] MEDS: Pantoprazole VIAL 40 MG VIAL IV SCH (07:57)
[2020-05-08] MEDS: Heparin 5000 UNITS/ML 1 mL VIAL SUBCUT SCH ×2 (08:02→19:55)
[2020-05-08] MEDS: Midazolam 50 MG VIAL IV DRIP 50 ML IV SCH ×2 (12:14→22:34)
[2020-05-08] MEDS ORDERED: Metoprolol Tartrate 5 mg VIAL 5 ml VIAL (1 mg/ml) IV PRN ×2 (14:11→14:46)
[2020-05-08 18:55] LABS: Anion Gap 4 mmol/L (2-11); BUN/Creatinine Ratio 12.2 (8-20); Blood Urea Nitrogen 41 mg/dL (6-24); CO2 Carbon Dioxide 26 mmol/L (22-32); Chloride 111 mmol/L (101-111); EGFR African American 16.5 (>60); EGFR Non-African American 13.6 (>60); Glucose 102 mg/dL (70-100); Magnesium 2.4 mg/dL (1.9-2.7); Potassium 4.5 mmol/L (3.5-5.0); Sodium 141 mmol/L (135-145)
[2020-05-08] MEDS: Cholecalciferol (VIT D3) 1,000 unit TAB PO SCH (19:54)
[2020-05-08] MEDS: Latanoprost 0.005% 2.5 ml BTL BOTH EYES SCH (19:55)
[2020-05-09] MEDS: Albuterol/Ipratropium NEB.SOL (2.5/0.5 MG) 3 ML NEB.SOLN INH SCH ×2 (00:41→07:58)
[2020-05-09] MEDS: fentaNYL INFUSION 50 MCG/ML 2,500 MCG/50 ML BAG IV SCH (02:37)
[2020-05-09] MEDS: Chlorhexidine MOUTHWASH 0.12% 15 ML UDC TOPICAL SCH ×3 (03:33→11:34)
[2020-05-09 03:50] LABS: Hematocrit 33 % (35-47); Hemoglobin 10.1 g/dL (12.0-16.0); Mean Corpuscular HGB Conc 31 g/dL (31-36); Mean Corpuscular Hemoglobin 29 pg (27-31); Mean Corpuscular Volume 92 fL (80-97); Mean Platelet Volume 8.1 fL (7.4-10.4); Platelet Count 443 10^3/uL (150-450); Red Blood Count 3.56 10^6 /uL (3.70-4.87); Red Cell Distribution Width 15 % (10-15); White Blood Count 21.2 10^3/uL (3.5-10.8)
[2020-05-09 04:19] LABS: BUN/Creatinine Ratio 12.9 (8-20); Calcium 8.2 mg/dL (8.6-10.3); EGFR African American 15.7 (>60); Magnesium 2.5 mg/dL (1.9-2.7); Phosphorus 6.7 mg/dL (2.5-5.0)
[2020-05-09 04:22] LABS: Potassium 5.2 mmol/L (3.5-5.0)
[2020-05-09] MEDS: metroNIDAZOLE IV 500 MG/100ML 500 MG/100 ML BAG IVPB SCH (05:40)
[2020-05-09] MEDS: Pantoprazole VIAL 40 MG VIAL IV SCH (07:29)
[2020-05-09] MEDS: Heparin 5000 UNITS/ML 1 mL VIAL SUBCUT SCH (07:32)
[2020-05-09] MEDS: Midazolam 50 MG VIAL IV DRIP 50 ML IV SCH (07:39)
[2020-05-09] MEDS: Cefepime 1 GM in Dextrose 1 GM/50 ML BAG IV SCH (11:32)
[2020-05-09] MEDS ORDERED: Rocuronium 50 mg VIAL 10 mg/ml 5 ml VIAL (50 mg) ONE (12:49)
[2020-05-09 15:06] VITALS: BP 115/62
== END 2020-05-09 14:34 | disposition expired ==
LOC: ED 23:56 → MED 04-29 03:57 → ICU 05-01 22:13
PROVIDERS: ADMIT Internal Medicine; ATTEND Internal Medicine